=== PATIENT | female | born 1980 ===

== ENCOUNTER 2017-05-24 18:51 | Emergency (ER) | payer SELFPAY ==
[2017-05-24 19:21] VITALS: BMI 24.7
[2017-05-24] MEDS ORDERED: Lactated Ringer's 1,000 ML IV SCH (19:30)
[2017-05-24 19:55] LABS: BASO # 0.1 K/uL (0.0-0.2); BASO % 0.8 % (0.0-2.0); EOS # 0.1 K/uL (0.0-0.7); EOS % 1.2 % (0.0-4.0); HEMOGLOBIN 11.6 g/dL (12.0-16.0); LYMPH # 1.6 K/uL (1.0-4.3); LYMPH % 22.8 % (20.0-40.0); MEAN CELL VOLUME 93.8 fl (81.0-99.0); MEAN CORPUSCULAR HEMOGLOBIN 32.6 pg (27.0-31.0); MEAN CORPUSCULAR HGB CONC 34.8 g/dL (33.0-37.0); MEAN PLATELET VOLUME 9.3 fl (7.2-11.7); MONO # 0.5 K/uL (0.0-0.8); MONO % 6.5 % (0.0-10.0); NEUT # 4.9 K/uL (1.8-7.0); NEUT % 68.7 % (50.0-75.0); NRBC % 0.1 % (0.0-0.0); RBC 3.55 Mil/uL (3.80-5.20); RED CELL DISTRIBUTION WIDTH 12.9 % (11.5-14.5); WHITE BLOOD COUNT 7.1 K/uL (4.8-10.8)
--- NOTE | 2017-05-24 20:48 | US ---
EXAM: US Uterus, Limited CLINICAL HISTORY: 37 years old, female; Pain; Pain indication: Low abd pain and vag bleed; ; Additional info: Vaginal bleeding TECHNIQUE: Real-time ultrasound of the maternal uterus (limited) with image documentation. COMPARISON: No relevant prior studies available. FINDINGS: Fetus: Single live intrauterine gestation. Estimated gestational age of 30 weeks 5 days by measurements. EFW: 1555 g. Anatomy: No gross anomaly is appreciated. Heart rate: heart rate of 142 beats per minute. Placenta: No placenta previa or abruption. Amniotic fluid: Normal. ERMA = 14.2 cm. Cervix: No cervical dilatation or effacement. IMPRESSION: 1. Single live intrauterine gestation. EXAM: US Biophysical Profile Without Non-Stress Testing CLINICAL HISTORY: 37 years old, female; Pain; Pain indication: Low abd pain and vag bleed; ; Additional info: Vaginal bleeding TECHNIQUE: Real-time ultrasound of the maternal pelvis for biophysical profile evaluation with image documentation. COMPARISON: No relevant prior studies available. FINDINGS: breathing movements: Present. Score 2/2. Gross body movements: Present. Score 2/2. tone: Present. Score 2/2. Qualitative amniotic fluid volume: Within normal limits. Score 2/2. IMPRESSION: Normal biophysical profile ultrasound. Score 8/8.
--- NOTE | 2017-05-24 21:19 | OBHP ---
Datetime: 05/24/2017 21:13 IP Adm Impression: , intrauterine IP Admit Plan: Observation/Evaluation; Discharge home Admit Comment, IP Provider: Patient is a @ 30.5 wks presents with vaginal bleeding after int ercourse. Patient denies abdominal pain, ctxns, +FM. Patient otherwise has no antepartum issues, no m edical problems, no previous surgeries. On speculum exam, vaginal bleeding noted. Patient also report ed passing 1-2 clots at home and come in with about 1/4 of pad with blood. On U/S, ERMA = 14 and poste rior placenta, Ruled out PPROM. DRG=845 mod rashida, +accels, no decels, occasional contractions. Patinet has no abdominal pain on palpation. Patient was watched for a few hours and bleeding subsided. Ruled out abruption. Hgb=11.3, Blood type = O+. Patient given labor precautions and pelvic rest. F/U in cl inic 1/3 Pelvic Type - PN: Adequate Extremities - PN: Normal Abdomen - PN: Normal Back - PN: Normal Breast - PN: Normal Lungs - PN: Normal Heart - PN: Normal Thyroid - PN: Normal Neurologic - PN: Normal HEENT - PN: Normal General - PN: Normal FHR - Baseline A Provider: 135 EGA AdmitDate IP: 30.5 Vital Signs Provider: Reviewed; Within Normal Limits IP Chief Complaint: Vaginal bleeding NICHD Variability Prov Fetus A: Moderate 6-25bpm NICHD Accel Fetus A IP Provider: 15X15 NICHD Decel Fetus A IP Provider: None Dilatation, Provider: FT Effacement, Provider: Thick Station, Provider: -3 Genitourinary Exam: Normal DTRs - PN: Normal
--- NOTE | 2017-05-24 21:21 | OBDCSUM ---
Datetime: 05/24/2017 21:16 Discharged to, Provider: Home Follow up at, Provider: [facility] Disch Instr Activity: Normal activity Disch Instr Diet: Regular Discharge Instructions, Provider: Routine instructions given Discharge Diagnosis, Provider: Antepartum Bleeding Discharge Time: 05/24/2017 21:17 Follow up in weeks, Provider: 06/04/2017 Disch Referrals: None Contraception discussed, Prov: Yes Disch Activity Restrictions: No lifting; No sexual activity
[2017-05-25 04:42] VITALS: BP 96/59; PULSE 86; O2SAT 99
== END 2017-05-24 21:30 | disposition home or self-care (01) ==
LOC: H.EROB2 18:51
DX: O46.93 Antepartum hemorrhage, unspecified, third trimester (principal); Z3A.30 30 weeks gestation of pregnancy
CPT/HCPCS: 76818; 85025; 86850; 86900; 96360; 96361; 99284; J7120

== ENCOUNTER 2017-07-21 03:27 | Inpatient (IN) | payer MEDICAID, SELFPAY ==
[2017-07-21 03:57] VITALS: BMI 25.9
--- NOTE | 2017-07-21 04:25 | OBADHP ---
Datetime: 07/21/2017 04:15 Admit Comment, IP Provider: 37 y/o female with IUP at 39 weeks (LOBITO 07/27) presents with compla ints of worsening CTX since yesterday and an episode of vaginal spotting. Denies LOF. + FM. Denies he adache, dysuria. PNC: CFH,GBS negative, labs reviewed OBHx: 2 prior , full term, no complications PMHX: Hemorroids, Bartholins cyst PSurgHx: denies Meds: PNV NKDA VSS General: Comfortable, NAd Cardio: RRR, no murmurs Pulmonary: CTABL Abdomen: Gravid, NT Pelvic: Cervix 5cm, 100%, bulging membranes FHR: 140, reactive, no decels Assessment: IUP at 39wks gestation in active labor, mebranes in tact Plan: Admit to L_D. Monitor for progression of labor, continous monitoring. CBC, Type and sc reen. Discussed case with OB Attending Dr. Zheng Lnidsay PGY1 OB Hospitalist Addendum: Pt seen and examined by me. Agree w/ above. 37 yo at 39 wks w/ ctxns since yesterday, in labor. GBS negative. FHT reassuring. Pt admitted to L_D. (ES) Lungs - PN: Normal Heart - PN: Normal Contraction Comments Provider: Q5 Vital Signs Provider: Reviewed IP Chief Complaint: Uterine contractions FHR Category Provider Fetus A: Category II NICHD Decel Fetus A IP Provider: None EGA AdmitDate IP: 39.0 IP Adm Impression: Term, intrauterine IP Admit Plan: Admit to unit Datetime: 07/21/2017 03:58 Extremities - PN: Normal Abdomen - PN: Normal Back - PN: Normal Neurologic - PN: Normal General - PN: Normal FHR - Baseline A Provider: 120's Membranes, Provider: Bulging NICHD Variability Prov Fetus A: Moderate 6-25bpm NICHD Accel Fetus A IP Provider: 15X15 Dilatation, Provider: 5 Effacement, Provider: 100 Station, Provider: -2 Genitourinary Exam: Normal Datetime: 05/24/2017 21:13 Pelvic Type - PN: Adequate Breast - PN: Normal Thyroid - PN: Normal HEENT - PN: Normal DTRs - PN: Normal
[2017-07-21] MEDS ORDERED: Lactated Ringer's 1,000 ML IV SCH ×2 (04:30→04:45)
[2017-07-21 04:34] LABS: BASO # 0.1 K/uL (0.0-0.2); BASO % 0.7 % (0.0-2.0); EOS # 0.1 K/uL (0.0-0.7); EOS % 1.2 % (0.0-4.0); HEMOGLOBIN 12.5 g/dL (12.0-16.0); LYMPH # 1.7 K/uL (1.0-4.3); LYMPH % 21.4 % (20.0-40.0); MEAN CELL VOLUME 94.4 fl (81.0-99.0); MEAN CORPUSCULAR HEMOGLOBIN 32.2 pg (27.0-31.0); MEAN CORPUSCULAR HGB CONC 34.1 g/dL (33.0-37.0); MEAN PLATELET VOLUME 9.2 fl (7.2-11.7); MONO # 0.5 K/uL (0.0-0.8); MONO % 6.1 % (0.0-10.0); NEUT # 5.6 K/uL (1.8-7.0); NEUT % 70.6 % (50.0-75.0); NRBC % 0.1 % (0.0-0.0); RBC 3.89 Mil/uL (3.80-5.20); RED CELL DISTRIBUTION WIDTH 13.6 % (11.5-14.5)
[2017-07-21] MEDS ORDERED: Lidocaine 1% Inj (20ml) ONE (07:28)
[2017-07-21] MEDS: Oxytocin 30 UNITS in Sodium Chloride 0.9% 500 ML IV PRN ×2 (07:56→08:21)
[2017-07-21] MEDS ORDERED: Benzocaine/Menthol SPRAY TOP PRN (08:05)
--- NOTE | 2017-07-21 08:15 | OBDS ---
DELIVERY PERSONNEL Delivery Doctor: Prince Calzada MD Toy Department Manager: Nicholas Junie RN MATERNAL INFORMATION Delivery Anesthesia: None Medications in Delivery: pitocin 30 units in 500 ml lr Placenta Cultured: No Maternal Complications: None Provider Comments: Pt progressed to complete and pushed to deliver a viable female delivered through clear fluid at 07:53 am. Apgars 9 and 9. Wt 2930gms, 6#7.4. Infant placed on mother's abdome n. Cord doubly clamped and cut. Cord blood collected. Placenta delivered spontaneously intact w/ 3 vc at 07:56 am. Bleeidng controlled w/ bimanual massage. No tears. Rectum intact. Pt and baby jonathon erated the procedure well. EBL 150mL LABOR SUMMARY EDC: 07/28/2017 00:00 No. Babies in Womb: 1 Attempted: No Labor Anesthesia: None LABOR INFORMATION Reason for Induction: Not Applicable Onset of Labor: 07/21/2017 01:00 Complete Dilatation: 07/21/2017 07:20 Oxytocin: N/A Group B Beta Strep: Negative Steroids Given: None Reason Steroids Not Administered: Not Applicable MEMBRANES Membranes Rupture Method: Artificial Rupture of Membranes: 07/21/2017 07:51 Length of Rupture (hrs): 0.03 Amniotic Fluid Color: Clear Amniotic Fluid Amount: Moderate Amniotic Fluid Odor: Normal STAGES OF LABOR Stage 1 hrs: 6 Stage 1 min: 20 Stage 2 hrs: 0 Stage 2 min: 33 Stage 3 hrs: 0 Stage 3 min: 3 Total Time in Labor hrs: 6 Total Time in Labor min: 56 VAGINAL DELIVERY Episiotomy: Median Laceration Extension: N/A Laceration Type: None Laceration Repair: Not Applicable Initial Vag Sponge Count: 5 Final Vag Sponge Count: 5 Initial Vag Sharps Count: 0 Final Vag Sharps Count: 0 Sponge Count Correct: Yes Sharps Count Correct: Yes BABY A INFORMATION Infant Delivery Date/Time: 07/21/2017 07:53 Method of Delivery: Vaginal Born in Route : No : N/A Forceps: N/A Vacuum Extraction: N/A Shoulder Dystocia : No SHOULDER DYSTOCIA BABY A Delivery Date/Time: 07/21/2017 07:53 PRESENTATION/POSITION BABY A Presentation: Cephalic Cephalic Presentation: Vertex Breech Presentation: N/A PLACENTA INFORMATION BABY A Placenta Delivery Time : 07/21/2017 07:56 Placenta Method of Delivery: Spontaneous Placenta Status: Delivered SCORES BABY A Heart Rate 1 min: >100 bpm Resp Effort 1 min: Good Cry Muscle Tone 1 min: Active Motion Color 1 min: Body [place], Extremities Blue Heart Rate 5 min: >100 bpm Resp Effort 5 min: Good Cry Muscle Tone 5 min: Active Motion Color 5 min: Body [place], Extremities Blue INFANT INFORMATION BABY A Gestational Age at Delivery: 39.0 Gestational Status: Outcome : Liveborn Condition : Stable Infant Sex: Female WEIGHT/LENGTH BABY A Birthweight (gms): 2930 Weight (lb): 6 Infant Weight (oz): 7 CORD INFORMATION BABY A No. Cord Vessels: 3 Nuchal Cord : N/A Suction: None ASSESSMENT BABY A Infant Complications: None Physical Findings at Delivery: Within Normal Limits Respirations: Appears Normal [place]/[facility] Called : No Care By: Robin Fabian
[2017-07-21] MEDS ORDERED: Multivitamin With Minerals Tab PO SCH (09:00)
[2017-07-21] MEDS ORDERED: Benzocaine/Menthol SPRAY TOP ONE (23:13)
[2017-07-22 07:16] LABS: BASO % 0.4 % (0.0-2.0); EOS # 0.1 K/uL (0.0-0.7); EOS % 1.3 % (0.0-4.0); LYMPH % 20.4 % (20.0-40.0); MEAN CELL VOLUME 95.2 fl (81.0-99.0); MEAN CORPUSCULAR HEMOGLOBIN 31.5 pg (27.0-31.0); MEAN CORPUSCULAR HGB CONC 33.1 g/dL (33.0-37.0); MEAN PLATELET VOLUME 9.1 fl (7.2-11.7); MONO # 0.7 K/uL (0.0-0.8); MONO % 6.7 % (0.0-10.0); NEUT # 7.2 K/uL (1.8-7.0); NEUT % 71.2 % (50.0-75.0); RBC 3.14 Mil/uL (3.80-5.20); RED CELL DISTRIBUTION WIDTH 13.3 % (11.5-14.5); WHITE BLOOD COUNT 10.1 K/uL (4.8-10.8)
[2017-07-22 07:39] LABS: HEMOGLOBIN 9.9 g/dL (12.0-16.0)
[2017-07-22] MEDS ORDERED: Benzocaine/Menthol SPRAY TOP ONE (08:37)
[2017-07-22] MEDS ORDERED: Benzocaine/Menthol SPRAY TOP PRN (08:37)
[2017-07-22] MEDS ORDERED: Multivitamin With Minerals Tab PO SCH (09:00)
--- NOTE | 2017-07-22 10:24 | OBPPN ---
Datetime: 07/22/2017 06:27 PP Pain Prov: Within normal limits PP Nausea Prov: Denies PP Flatus Prov: Yes PP BM Prov: No PP Breasts Prov: Not Done PP Heart Prov: Normal PP Lungs Prov: Normal PP Abdomen/Uterus Prov: Normal PP Lochia Prov: Normal PP Vulva/Perineum Prov: Not Done PP CVA Tenderness Prov: Not Done PP Extremities Prov: Normal PP C/S Incision Prov: Not Applicable PP Progress Prov: Normal PP Impression Prov: Normal progression PP Plan Prov: Continue present management PP Progress Note Prov: PPD 1 S: 37 y/o female sp on 07/21/17 evaluated on PPD1. Pt was seen and examined at bedside th is AM. No overnight events. Pt reports mild abdominal pain, but well controlled with pain meds. Ambul ating. Breast feeding (with formula supplementation) without difficulty. Lochia is similar to menses volume. No BM, but pasting gas per rectum. Denies fever/chills, diarrhea, nausea/vomiting, chest mica n, dyspnea, and dizziness. O: VS: stable GEN: NAD Cardio: S1S2, no murmurs Lungs: clear breath sounds b/l, no wheezing Abdomen: BS+, appropriate tenderness to palpation. Uterus is firm and at the level of the umbilic us. EXT: No edema, calves nontender NEURO/PSYCH: AAOx3, no grossly focal deficits, preserved affect and mood. Assessment/Plan: 37 y/o female s/p on 07/21/17 doing well on PPD1. Pt remains afebrile, tolerating pain with medication, doing well on PPD#1. F/U Post H/H. Tolerating diet. Anticip ating d/c on -07/23/17. Continue with current management. Motrin 600mg q6 for pain. Encourage and ambulating [place] 17.2 mg PO HS Case dw OB attending Krys Ashton, PGY1 [facility]-call : on Rounds this morning, I saw and examined this patient. Agree with PGY1 note. Anemia - - asymptonatic (continue observation ) YANA CH PP Procedures: None Vital Signs Provider PP: Reviewed; Within Normal Limits
--- NOTE | 2017-07-23 08:53 | OBPPN ---
Datetime: 07/23/2017 06:16 PP Pain Prov: Within normal limits PP Nausea Prov: Denies PP Flatus Prov: Yes PP BM Prov: No PP Breasts Prov: Not Done PP Heart Prov: Normal PP Lungs Prov: Normal PP Abdomen/Uterus Prov: Normal PP Lochia Prov: Normal PP Vulva/Perineum Prov: Not Done PP CVA Tenderness Prov: Not Done PP Extremities Prov: Normal PP C/S Incision Prov: Not Applicable PP Progress Prov: Normal PP Impression Prov: Normal progression PP Plan Prov: Continue present management; Discharge PP Progress Note Prov: PPD 2 S: 37 y/o female s/p on 07/21/17 evaluated on PPD2. Pt was seen and examined at bedside this AM. No overnight events. Pt reports mild abdominal pain, but well controlled with pain meds. Amb ulating without dizziness/lightheadedness/palpatations. Breast feeding (with formula supplementation) without difficulty. Lochia is similar to menses volume. +BM yesterday. Denies fever/chills, diarrhe a, nausea/vomiting, chest pain, dyspnea, and dizziness. O: VS: stable GEN: NAD Cardio: S1S2, no murmurs Lungs: clear breath sounds b/l, no wheezing Abdomen: BS+, appropriate tenderness to palpation. Uterus is firm and at the level of the umbilic us. EXT: No edema, calves nontender NEURO/PSYCH: AAOx3, no grossly focal deficits, preserved affect and mood. CBC (post ): . Assessment/Plan: 37 y/o female s/p on 07/21/17 doing well on PPD2. Pt remains afebrile, tolerating pain with medication. PP CBC: .02/28.9. Pt does not have symptoms of anemia. Will continue to monitor. Tolerating diet. Contraception discussed with patient, she is undecided at the moment. A nticipating discharge today. Motrin 600mg q6 for pain. Encourage and ambulating [place]ot 17.2 mg PO HS Case dw OB attending Krys Ashton, PGY1 The patient was seen with the resident I agree with the note Vital Signs Provider PP: Reviewed; Within Normal Limits
--- NOTE | 2017-07-23 08:53 | OBDCSUM ---
Datetime: 07/23/2017 06:21 Discharged to, Provider: Home Follow up at, Provider: OBGYN Disch Instr Activity: Normal activity Disch Instr Diet: Regular Discharge Instructions, Provider: Routine instructions given Discharge Diagnosis, Provider: Term Delivered Follow up in weeks, Provider: 4-6wks Disch Referrals: None Contraception discussed, Prov: Yes Disch Activity Restrictions: No sexual activity; Nothing in vagina - [place], tampons, douche Discharge Comment, Provider: 37 y/o female s/p on 07/21/17 complications: none Post : Asymptomatic anemia Baby: Female, 2930g, 9/9 Discharge Instructions: 1. Follow up with OBGYN in 4-6 weeks 2. ER precautions given 3. Encourage 4. Continue taking PNV 5. RX provided: Ibuprofen 600mg, Colace 100mg BID, Ferrous Sulfate 325mg BID Discussed case with OB Hospitalist Angélica PGY1 The patient was seen with the resident I agree with the note Patient cleared for discharge Contraception after Delivery: Undecided
[2017-07-23 18:14] VITALS: BP 93/57; PULSE 78; RESP 18; TEMP 98.1; O2SAT 97
== END 2017-07-23 13:40 | disposition home or self-care (01) | DRG 376 ==
LOC: H.EROB2 03:27 → H.L&D 04:15 → H.OB/GYN 09:28
PROVIDERS: ADMIT Obstetrics & Gynecology; ATTEND Obstetrics & Gynecology
PROC: 0W8NXZZ Division of Female Perineum, External Approach (ICD-10-PCS; principal; 2017-07-21)
PROC: 10E0XZZ Delivery of Products of Conception, External Approach (ICD-10-PCS; 2017-07-21)
PROC: 10907ZC Drainage of Amniotic Fluid, Therapeutic from Products of Conception, Via Natural or Artificial Opening (ICD-10-PCS; 2017-07-21)
PROC: 4A1HXCZ Monitoring of Products of Conception, Cardiac Rate, External Approach (ICD-10-PCS; 2017-07-21)
DX: O90.81 Anemia of the puerperium (principal); D64.9 Anemia, unspecified; Z37.0 Single live birth; Z3A.39 39 weeks gestation of pregnancy; Z91.013 Allergy to seafood